=== PATIENT | female | born 1940 | race Caucasian/White ===

== ENCOUNTER 2016-07-08 15:44 | Inpatient (IN) | payer MEDICARE, OTHER ==
[2016-07-08] MEDS ORDERED: CITROMA 296 ML PO ONE (17:54)
[2016-07-08] MEDS: D5W/0.45NS W/ 20mEq KCl 1000 ML 1,000 ML IV SCH (18:13)
[2016-07-08] MEDS: DILAUDID 1 MG/1ML PCA IV PRN (18:14)
[2016-07-08] MEDS ORDERED: TYLENOL EXTRA STRENGTH 500 MG PO PRN (18:37)
[2016-07-08] MEDS: ENOXAPARIN SODIUM SQ SCH (22:50)
[2016-07-08] MEDS: Cordarone 200 MG PO SCH (22:56)
[2016-07-08] MEDS: Carafate 1 GM PO SCH (22:56)
[2016-07-08] MEDS: Toprol-Xl 25MG Tablets PO SCH (22:58)
[2016-07-09] MEDS: Zofran 4 MG/2 ML VIAL IV PRN ×2 (00:09→10:12)
[2016-07-09 06:00] LABS: Mean Platelet Volume 12.3 fl (6-9.5); Platelet Count 220 K/mm3 (150-450); Red Blood Count 3.49 M/mm3 (4.1-5.4); Red Cell Distribution Width 17.5 % (11.5-14.0); White Blood Count 8.9 K/mm3 (4.0-10.5)
[2016-07-09] MEDS ORDERED: SUBLIMAZE 100 MCG/2 ML IV ONE (06:00)
[2016-07-09 06:01] LABS: Mean Corpuscular Hemoglobin 27.7 pg (26-32)
[2016-07-09 06:16] LABS: Bacteria FEW /HPF (NEGATIVE); COMPLETE URINE MICROSCOPIC? YES; Collection Type VOID; Mucus SLIGHT /HPF (NEGATIVE); Ph 5.5 (5-6); WBC 0-2 /HPF (0-5)
[2016-07-09 06:28] LABS: ANION GAP 10.3 MEQ/L (5-15); BLOOD UREA NITROGEN 21 mg/dL (9-20); CHLORIDE 105 mEq/L (98-107); Carbon Dioxide 30.6 mEq/L (21-32); Glucose 130 MG/DL (70-110); Potassium 3.9 mEq/L (3.5-5.1); SODIUM 142 mEq/L (136-145)
[2016-07-09] MEDS ORDERED: LASIX 20 MG PO PRN (06:56)
[2016-07-09] MEDS ORDERED: MEDICATION INTERVENTION MC SCH (07:15)
[2016-07-09] MEDS: DILAUDID 1 MG/1ML PCA IV PRN ×2 (07:52→17:44)
[2016-07-09] MEDS ORDERED: Zofran 4 MG/2 ML VIAL IV ONE (08:00)
[2016-07-09] MEDS ORDERED: TORAdol 30 mg Injection IV ONE (08:00)
[2016-07-09] MEDS ORDERED: Quelicin Fliptop 200 MG/10 ML IV ONE (08:00)
[2016-07-09] MEDS ORDERED: DIPRIVAN 200 MG/20 ML IV ONE (08:00)
[2016-07-09] MEDS ORDERED: Zemuron 100 MG/10 ML IV ONE (08:00)
[2016-07-09] MEDS ORDERED: Decadron 4 MG INJ IV ONE (08:00)
--- NOTE | 2016-07-09 08:33 | XRAY ---
Indication: COPD. Comparison: None PA/lateral chest hyperinflated and clear. Heart is not enlarged and demonstrates a left-sided dual-lead pacemaker. Vascularity normal. Bony thorax intact with mild osteopenia. Impression: COPD. No acute cardiopulmonary abnormalities.
--- NOTE | 2016-07-09 09:07 | CONS ---
CONSULT DATE: 07/08/2016 REASON FOR CONSULT: Recurrent abdominal pain, abdominal distention with clinical small bowel obstruction. HISTORY: The patient has a long complicated history. She had uterine carcinoma. She had radiation therapy, surgical intervention this was way back in 2001. Over the last year she has been in the hospital six times. She has had multiple studies. She has been in several different hospitals. She was recently seen and examined in my office by referral by Dr. Perry. Today she comes back and she said she has nausea and vomiting. She has abdominal distention which is clearly present. She recently had an upper GI and small bowel follow through that was normal. She recently had colonoscopic examination and recently had a barium enema examination which was satisfactory. Despite this she has clinical recurrent small bowel obstruction or colon obstruction. I think she certainly requires exploration at this time. She has an old midline incision which is well healed. PAST MEDICAL HISTORY: ALLERGIES: PENICILLIN. MEDICATIONS: Eliquis. PAST SURGICAL HISTORY: Endoscopies 03/30/2016 of the previous uterine carcinoma. SOCIAL HISTORY: Negative. FAMILY HISTORY: Negative. REVIEW OF SYSTEMS: Cardiac disease controlled. PHYSICAL EXAMINATION: Vital signs normal. CHEST: Clear. COR: Regular. ABDOMEN: Moderately protuberant, mildly tender. IMPRESSION: Recurrent small bowel obstruction. PLAN: Laparotomy enteroclysis or resection. I suspect that she clearly has some disease segments from her radiation.
[2016-07-09] MEDS ORDERED: Toprol-Xl 25MG Tablets PO SCH (10:00)
[2016-07-09] MEDS ORDERED: FOLIC ACID PO SCH (10:00)
[2016-07-09] MEDS ORDERED: Miralax Powder 17GM PACKET PO SCH (10:00)
[2016-07-09] MEDS ORDERED: [UNRECOGNIZED DRUG - OTHER] PO SCH (10:00)
[2016-07-09] MEDS ORDERED: VIT BCOMP C PO SCH (10:00)
[2016-07-09] MEDS ORDERED: NON-FORMULARY ITEM (Potassium [Potassium] 99 MG) PO SCH (10:00)
[2016-07-09] MEDS ORDERED: VITAMIN D3 PO SCH (10:00)
[2016-07-09] MEDS ORDERED: CALCIUM CARBONATE PO SCH (10:00)
[2016-07-09] MEDS ORDERED: IRON 28 MG PO SCH (10:00)
[2016-07-09] MEDS ORDERED: ASCORBIC ACID 500 MG PO SCH (10:00)
[2016-07-09] MEDS: Carafate 1 GM PO SCH ×3 (10:38→16:01)
[2016-07-09] MEDS: FEOSOL 325 MG PO SCH (10:38)
[2016-07-09] MEDS: FOLATE 1 MG PO SCH (10:38)
[2016-07-09] MEDS: Calcium 500MG W/Vit D Tablet PO SCH (10:38)
[2016-07-09] MEDS: Vitamin C 500 MG PO SCH (10:39)
[2016-07-09] MEDS: Toprol-Xl 25MG Tablets PO SCH (10:39)
[2016-07-09] MEDS: Vitamin B-12 500 MCG PO SCH (10:39)
[2016-07-09] MEDS: Lanoxin 0.125MG TABLET PO SCH (10:39)
[2016-07-09] MEDS: VITA-BEE WITH C PO SCH (10:39)
[2016-07-09] MEDS: ENOXAPARIN SODIUM SQ SCH (12:59)
[2016-07-09] MEDS: D5W/0.45NS W/ 20mEq KCl 1000 ML 1,000 ML IV SCH (14:12)
[2016-07-09] MEDS ORDERED: Levofloxacin 500MG/100ML D5W 100 ML IV SCH (16:00)
[2016-07-09] MEDS ORDERED: Pepcid 20 MG VIAL IV SCH (16:00)
[2016-07-09] MEDS ORDERED: Lactated Ringers 1,000 ML IV SCH (16:00)
[2016-07-09] MEDS ORDERED: CLINDAMYCIN-D5W 900 MG/50 ML*** 50 ML IV SCH (16:00)
[2016-07-09] MEDS ORDERED: Pepcid 20 MG VIAL IV ONE (18:43)
[2016-07-09] MEDS ORDERED: DILAUDID 2 MG INJECTION ONE (22:02)
[2016-07-10] MEDS: FEOSOL 325 MG PO SCH ×3 (00:13→21:40)
[2016-07-10] MEDS: Toprol-Xl 25MG Tablets PO SCH ×3 (00:14→21:40)
[2016-07-10] MEDS: Carafate 1 GM PO SCH ×5 (00:14→21:40)
[2016-07-10] MEDS: Cordarone 200 MG PO SCH ×2 (00:14→21:38)
[2016-07-10] MEDS: ENOXAPARIN SODIUM SQ SCH ×3 (00:14→21:42)
[2016-07-10] MEDS: FLAGYL 500 MG IVPB 100 ML IV SCH ×5 (02:52→23:09)
[2016-07-10 05:51] LABS: Mean Corpuscular Hemoglobin 27.7 pg (26-32); Mean Platelet Volume 12.2 fl (6-9.5); Platelet Count 211 K/mm3 (150-450); Red Cell Distribution Width 16.9 % (11.5-14.0); White Blood Count 10.7 K/mm3 (4.0-10.5)
[2016-07-10 06:10] LABS: ANION GAP 10.7 MEQ/L (5-15); BLOOD UREA NITROGEN 16 mg/dL (9-20); CHLORIDE 105 mEq/L (98-107); Carbon Dioxide 29.3 mEq/L (21-32); Glucose 162 MG/DL (70-110); Potassium 4.4 mEq/L (3.5-5.1); SODIUM 141 mEq/L (136-145)
[2016-07-10] MEDS ORDERED: TYLENOL 325 MG PO PRN (07:15)
[2016-07-10] MEDS ORDERED: FEVERALL 650 MG RC PRN (07:15)
[2016-07-10] MEDS: D5W/0.45NS W/ 20mEq KCl 1000 ML 1,000 ML IV SCH ×2 (09:01→21:38)
[2016-07-10] MEDS: Levofloxacin 500MG/100ML D5W 100 ML IV SCH (10:03)
[2016-07-10] MEDS: FOLATE 1 MG PO SCH (10:05)
[2016-07-10] MEDS: Calcium 500MG W/Vit D Tablet PO SCH (10:05)
[2016-07-10] MEDS: Lanoxin 0.125MG TABLET PO SCH (10:06)
[2016-07-10] MEDS: Vitamin B-12 500 MCG PO SCH (10:07)
[2016-07-10] MEDS: Vitamin C 500 MG PO SCH (10:08)
[2016-07-10] MEDS: VITA-BEE WITH C PO SCH (10:08)
[2016-07-10] MEDS ORDERED: PNEUMOVAX 23 IM ONE (12:00)
--- NOTE | 2016-07-10 16:28 | OP ---
THIS REPORT WAS AMENDED ON 07/12/16. SURGERY DATE: 07/09/16 SURGERY TIME: 2034 PREOPERATIVE DIAGNOSIS: 1. RECURRENT SMALL BOWEL OBSTRUCTION. POSTOPERATIVE DIAGNOSIS: 1. FIVE INTRALUMINAL STRICTURES AND ONE EXTERNAL ADHESION NARROWING FROM PREVIOUS SURGICAL INTERVENTION AND RADIATION TO THE PELVIS WITH MULTIPLE AREAS OF SMALL BOWEL BLOCKAGE NUMBERING SIX. PROCEDURE: 1. Extended right hemicolectomy extending taking additional small bowel. SURGEON: Clif Abreu M.D. ANESTHESIA: General per Mata Mckeon CRNA. COMPLICATIONS: None. BLOOD LOSS: None. DRAINS: None. CONDITION: Stable. INDICATION: Patient has had about 6 episodes of small bowel obstruction in the last year and a half. She has had innumerous work-up, EGD's, colonoscopies, small bowel follow throughs. CT suggesting partial small bowel obstruction intermittently. She was seen and examined in the office the day before the procedure. She was markedly bloated in the mid abdomen. She said she was having an attack coming back on. She was about ready to vomit. She was hospitalized. She was given IV fluids. She was given a little bit of bowel prep as tolerated and prepared for exploratory laparotomy. OPERATIVE PROCEDURE: She was taken to surgery. General anesthetic. Routine prep and drape. Midline incision centered on the umbilicus. The upper abdomen was satisfactory. The transverse colon, omentum, left and right lobes of the liver. There was 100 cc of clear ascites which was suctioned. Small bowels were eviscerated. Initially, this was looking fairly normal, but on closer inspection, there was clearly some distention of the proximal 2/3 of bowel and there was a clear transition line. There was nothing extraluminal at this point, but on palpation, there was clear intraluminal narrowing. On closer inspection, there was one about another 8 inches down from this and there was a total of 5 of these before the ileocecal valve. The anterior surface of the cecum was abnormal and certainly it had had previous radiation and exposure. This continued at least 2[address] the right colon. There was 1 adhesion in the pelvis which was taken down that was partially blocking. At this time, a formal resection right hemicolectomy with an additional 2 foot of small bowel. This probably did include the entire ileum and she probably will need B12 shots subsequently. [id number] anastomosis. Green PERLITA followed by TA green followed by over-sewing the distal end closing the defect with 3-0 PDS. No spillage occurred. The bowel was laid back in the abdomen. Anterior abdominal wall closed with looped PDS. Subcutaneous tissue irrigated. Skin closed with noemi. Sterile dressing applied. Patient tolerated the procedure satisfactory. Findings discussed with the family in the waiting room. IMPRESSION: 1. THIS LOOKED LIKE A VERY SUCCESSFUL OPERATION FOR PERSISTENT, RECURRENT PARTIAL SMALL BOWEL OBSTRUCTION MARKEDLY SYMPTOMATIC IN THIS LADY.
[2016-07-10] MEDS: Zofran 4 MG/2 ML VIAL IV PRN (20:55)
[2016-07-10] MEDS ORDERED: ENOXAPARIN SODIUM SQ SCH (22:00)
[2016-07-11] MEDS: FLAGYL 500 MG IVPB 100 ML IV SCH ×4 (05:05→23:14)
[2016-07-11] MEDS: DILAUDID 1 MG/1ML PCA IV PRN (05:47)
[2016-07-11] MEDS: Vitamin B-12 500 MCG PO SCH (08:41)
[2016-07-11] MEDS: Toprol-Xl 25MG Tablets PO SCH ×2 (08:41→21:48)
[2016-07-11] MEDS: Levofloxacin 500MG/100ML D5W 100 ML IV SCH (08:41)
[2016-07-11] MEDS: Vitamin C 500 MG PO SCH (08:41)
[2016-07-11] MEDS: Lanoxin 0.125MG TABLET PO SCH (08:41)
[2016-07-11] MEDS: Carafate 1 GM PO SCH ×4 (08:41→21:47)
[2016-07-11] MEDS: Calcium 500MG W/Vit D Tablet PO SCH (08:42)
[2016-07-11] MEDS: VITA-BEE WITH C PO SCH (08:42)
[2016-07-11] MEDS: FOLATE 1 MG PO SCH (08:42)
[2016-07-11] MEDS: ENOXAPARIN SODIUM SQ SCH ×2 (08:42→21:43)
[2016-07-11] MEDS: FEOSOL 325 MG PO SCH ×2 (08:42→21:48)
[2016-07-11] MEDS ORDERED: Mylicon DROPS PO PRN (16:32)
[2016-07-11] MEDS: Zofran 4 MG/2 ML VIAL IV PRN (18:55)
[2016-07-11] MEDS: D5W/0.45NS W/ 20mEq KCl 1000 ML 1,000 ML IV SCH (20:34)
[2016-07-11] MEDS: Cordarone 200 MG PO SCH (21:48)
[2016-07-12] MEDS: DILAUDID 1 MG/1ML PCA IV PRN ×3 (04:49→17:38)
[2016-07-12] MEDS: FLAGYL 500 MG IVPB 100 ML IV SCH ×4 (05:15→23:27)
[2016-07-12] MEDS: FEOSOL 325 MG PO SCH ×2 (09:45→20:33)
[2016-07-12] MEDS: Toprol-Xl 25MG Tablets PO SCH ×2 (09:45→20:32)
[2016-07-12] MEDS: Carafate 1 GM PO SCH ×5 (09:45→20:32)
[2016-07-12] MEDS: Calcium 500MG W/Vit D Tablet PO SCH (09:45)
[2016-07-12] MEDS: Lanoxin 0.125MG TABLET PO SCH (09:45)
[2016-07-12] MEDS: Vitamin C 500 MG PO SCH (09:47)
[2016-07-12] MEDS: FOLATE 1 MG PO SCH (09:47)
[2016-07-12] MEDS: Vitamin B-12 500 MCG PO SCH (09:47)
[2016-07-12] MEDS: VITA-BEE WITH C PO SCH (09:48)
[2016-07-12] MEDS: ENOXAPARIN SODIUM SQ SCH ×2 (09:48→20:34)
[2016-07-12] MEDS: Levofloxacin 500MG/100ML D5W 100 ML IV SCH (09:48)
[2016-07-12] MEDS: Zofran 4 MG/2 ML VIAL IV PRN (13:39)
[2016-07-12] MEDS: D5W/0.45NS W/ 20mEq KCl 1000 ML 1,000 ML IV SCH (13:39)
[2016-07-12] MEDS: TORAdol 30 mg Injection IV PRN ×2 (16:20→23:28)
[2016-07-12] MEDS: Cordarone 200 MG PO SCH (20:35)
[2016-07-13] MEDS: TORAdol 30 mg Injection IV PRN (05:32)
[2016-07-13] MEDS: FLAGYL 500 MG IVPB 100 ML IV SCH ×4 (05:32→23:51)
[2016-07-13] MEDS: D5W/0.45NS W/ 20mEq KCl 1000 ML 1,000 ML IV SCH ×2 (08:15→23:52)
[2016-07-13] MEDS: NORCO 5/325 MG PO PRN ×2 (08:40→21:08)
[2016-07-13] MEDS: Calcium 500MG W/Vit D Tablet PO SCH (09:58)
[2016-07-13] MEDS: FOLATE 1 MG PO SCH (09:58)
[2016-07-13] MEDS: Lanoxin 0.125MG TABLET PO SCH (09:59)
[2016-07-13] MEDS: Toprol-Xl 25MG Tablets PO SCH ×2 (10:00→21:08)
[2016-07-13] MEDS: Carafate 1 GM PO SCH ×4 (10:00→21:09)
[2016-07-13] MEDS: FEOSOL 325 MG PO SCH ×2 (10:00→21:09)
[2016-07-13] MEDS: Vitamin B-12 500 MCG PO SCH (10:01)
[2016-07-13] MEDS: ENOXAPARIN SODIUM SQ SCH ×2 (10:01→21:08)
[2016-07-13] MEDS: Vitamin C 500 MG PO SCH (10:02)
[2016-07-13] MEDS: Levofloxacin 500MG/100ML D5W 100 ML IV SCH (10:06)
[2016-07-13] MEDS: VITA-BEE WITH C PO SCH (10:17)
[2016-07-13] MEDS: Cordarone 200 MG PO SCH (21:08)
[2016-07-13] MEDS: Zofran 4 MG/2 ML VIAL IV PRN (23:53)
[2016-07-14] MEDS: D5W/0.45NS W/ 20mEq KCl 1000 ML 1,000 ML IV SCH ×3 (00:27→22:25)
[2016-07-14] MEDS: FLAGYL 500 MG IVPB 100 ML IV SCH ×3 (05:49→17:34)
[2016-07-14] MEDS: ENOXAPARIN SODIUM SQ SCH ×2 (09:40→21:48)
[2016-07-14] MEDS: Carafate 1 GM PO SCH ×4 (09:40→21:50)
[2016-07-14] MEDS: Calcium 500MG W/Vit D Tablet PO SCH (09:40)
[2016-07-14] MEDS: FEOSOL 325 MG PO SCH ×2 (09:41→21:49)
[2016-07-14] MEDS: Lanoxin 0.125MG TABLET PO SCH (09:42)
[2016-07-14] MEDS: FOLATE 1 MG PO SCH (09:42)
[2016-07-14] MEDS: VITA-BEE WITH C PO SCH (09:43)
[2016-07-14] MEDS: Levofloxacin 500MG/100ML D5W 100 ML IV SCH (09:43)
[2016-07-14] MEDS: Vitamin B-12 500 MCG PO SCH (09:43)
[2016-07-14] MEDS: Toprol-Xl 25MG Tablets PO SCH ×2 (09:43→21:51)
[2016-07-14] MEDS: Vitamin C 500 MG PO SCH (09:44)
[2016-07-14] MEDS: NORCO 5/325 MG PO PRN ×3 (09:52→21:51)
[2016-07-14] MEDS ORDERED: Sodium Chloride 0.9% 10 ML FLUSH Syringe IV PRN (18:16)
[2016-07-14] MEDS: Cordarone 200 MG PO SCH (21:50)
[2016-07-15] MEDS: FLAGYL 500 MG IVPB 100 ML IV SCH ×2 (00:41→05:37)
[2016-07-15 07:06] VITALS: O2SAT 97
[2016-07-15] MEDS: Carafate 1 GM PO SCH (08:17)
[2016-07-15] MEDS: Calcium 500MG W/Vit D Tablet PO SCH (08:18)
[2016-07-15] MEDS: FEOSOL 325 MG PO SCH (08:18)
[2016-07-15] MEDS: FOLATE 1 MG PO SCH (08:18)
[2016-07-15] MEDS: Toprol-Xl 25MG Tablets PO SCH (08:18)
[2016-07-15] MEDS: Lanoxin 0.125MG TABLET PO SCH (08:19)
[2016-07-15] MEDS: ENOXAPARIN SODIUM SQ SCH (08:20)
[2016-07-15] MEDS: Vitamin B-12 500 MCG PO SCH (08:21)
[2016-07-15] MEDS: Levofloxacin 500MG/100ML D5W 100 ML IV SCH (08:22)
[2016-07-15] MEDS: VITA-BEE WITH C PO SCH (08:22)
[2016-07-15] MEDS: Vitamin C 500 MG PO SCH (08:23)
[2016-07-15] MEDS: NORCO 5/325 MG PO PRN (08:33)
[2016-07-15 11:12] VITALS: BP 140/71; PULSE 78
== END 2016-07-15 11:33 | disposition home or self-care (01) | DRG 331 ==
LOC: MED SURG 15:44 → OBSVTOIN 07-09 20:05
PROVIDERS: ADMIT Surgery; ATTEND Surgery
PROC: 0DTF0ZZ Resection of Right Large Intestine, Open Approach (ICD-10-PCS; principal; 2016-07-09)
DX: K56.60 Unspecified intestinal obstruction (principal); N99.4 Postprocedural pelvic peritoneal adhesions; Z85.42 Personal history of malignant neoplasm of other parts of uterus
CPT/HCPCS: 00840; 36415; 71020; 80048; 81000; 85027; 87070; 87205; 88302; 88307; 88313; 90732; 93005; 94760; 94762; 99100; 99140; G0378; J0330; J1100; J1170; J1650; J1885; J1956; J2405; J2704; J3010; A9270-GY

== ENCOUNTER 2017-06-23 07:16 | Day surgery (SDC) | payer MEDICARE, OTHER ==
--- NOTE | 2017-06-21 15:17 | HP ---
DATE OF SURGERY: 06/23/2017 ADMISSION DIAGNOSIS: Six month follow up hemicolectomy ANTICIPATED PROCEDURE: Colonoscopy. HISTORY OF PRESENT ILLNESS: The patient had right hemicolectomy now presents for follow up. Pathology demonstrating multiple areas of adhesion. She had a previous colon cancer. She states she has constant diarrhea. No control. She wears pads all the time. She had two feet of her small bowel resected. She presents for endoscopic examination. We do need to perform stool samples. We do need to keep in mind that she is having severe diarrhea postoperatively. PAST MEDICAL HISTORY: ALLERGIES: NONE. MEDICATIONS: Per the chart. SOCIAL HISTORY: Negative. FAMILY HISTORY: Negative. REVIEW OF SYSTEMS: PHYSICAL EXAMINATION: VITAL SIGNS: Normal. CHEST: Clear. COR: Regular.
[~2017-06-23 07:16] MED LIST: Lactated Ringers 1,000 ML IV SCH
[2017-06-23] MEDS ORDERED: Lactated Ringers 1,000 ML IV ONE (07:56)
[2017-06-23] MEDS ORDERED: VERSED 5 MG/5 ML ONE (08:00)
[2017-06-23] MEDS ORDERED: DEMEROL 50 MG ONE (08:00)
[2017-06-23 11:03] VITALS: O2SAT 98
[2017-06-23 11:34] VITALS: BP 107/60; PULSE 74
[2017-06-23 12:32] LABS: 027 TOX PROD PRESUMPTIVE NEGATIVE (NEGATIVE); TOXIGENIC C. DIFF ORG NEGATIVE (NEGATIVE)
--- NOTE | 2017-06-23 15:08 | OP ---
SURGERY DATE/TIME: 06/23/2017 1005 PREOPERATIVE DIAGNOSIS: Previous right colon resection with persistent new diarrhea. POSTOPERATIVE DIAGNOSIS: Satisfactory examination with normal anastomosis complete to mid transverse colon which is the residual end. 2) Stool samples for Clostridium difficile, ova and parasite, stool pathogens. PROCEDURE: Colonoscopy. SURGEON: Clif Abreu M.D. ANESTHESIA: IV sedation 15 minutes titrated. COMPLICATIONS: None. CONDITION: Stable. INDICATION: A patient requiring evaluation. DESCRIPTION OF PROCEDURE: Taken to the endoscopy suite. IV sedation titrated. Oximeter kept over 90%. Anal digital examination was satisfactory. Scope introduced. Rectum was normal. Sigmoid was petite, was tight, was angulated and was sequentially cannulated very tediously meticulously. Descending colon entered this was certainly better up to the splenic flexure and the residual left transverse colon was of normal diameter and size. Ileocolonic anastomosis totally normal. No suggestion of any reason for diarrhea. Stool was sent for Clostridium difficile, ova and parasite, stool pathogens. On circumferential withdrawal no mucosal lesions noted. No suggestion of any mechanical issue or position-induced issue on the way out.
== END 2017-06-23 11:30 | disposition home or self-care (01) ==
LOC: SDC 07:16
PROVIDERS: ATTEND Surgery
PROC: 0DJD8ZZ Inspection of Lower Intestinal Tract, Via Natural or Artificial Opening Endoscopic (ICD-10-PCS; principal; 2017-06-23)
PROC: 0DJD8ZZ Inspection of Lower Intestinal Tract, Via Natural or Artificial Opening Endoscopic (ICD-10-PCS; 2017-06-23)
DX: Z90.49 Acquired absence of other specified parts of digestive tract (principal); Z85.038 Personal history of other malignant neoplasm of large intestine
CPT/HCPCS: 82272; 87493; 87507; J2175; J2250